=== PATIENT | male | born 1995 | race American Indian/Alaskan Native ===

== ENCOUNTER 2019-05-20 06:32 | Emergency (ER) | payer SELFPAY ==
[2019-05-20] MEDS ORDERED: IPRATROPIUM/ALBUTEROL SULFATE 3 ML AMPUL.NEB IH ONE (06:38)
[2019-05-20] MEDS ORDERED: methylPREDNISolone Sod Succinate 40 MG/1 ML INJ IM ONE (06:58)
[2019-05-20] MEDS ORDERED: ALBUTEROL 2.5 MG/3 ML NEBU IH ONE (06:59)
[2019-05-20] MEDS ORDERED: ACETAMINOPHEN 325 MG TAB PO ONE (06:59)
[2019-05-20] MEDS ORDERED: IPRATROPIUM 0.02% NEBU 2.5 ML IH ONE (06:59)
--- NOTE | 2019-05-20 07:13 | Emergency Department Report ---
Minor Respiratory - HPI Chief Complaint: Dyspnea/Respdistress Stated Complaint: ASTHMA Time Seen by Provider: 05/20/19 07:13 Pain Location: Chest Severity: moderate Minor Respiratory: Yes Able to Tolerate Fluids, Yes Cough, Yes Shortness of Breath, No Rhinorrhea, No Sore Throat, No Ear Pain, No Sick Contacts, No Hemoptysis, No Chest Pain, No Fever Other History: 24 yo AA male comes to ER with cough and wheezing. Pt has history asthma, has no pcp and has run out of his inhaler. Talking in complete sentences. Ambulatory without SOB. Denies fever, chills, or purulent sputum. ED Review of Systems ROS: Stated complaint: ASTHMA Other details as noted in HPI Comment: All other systems reviewed and negative ED Past Medical Hx - Past Medical History Previous Medical History?: Yes Hx Asthma: Yes - Surgical History Past Surgical History?: No - Family History Family history: no significant - Social History Smoking Status: Never Smoker Substance Use Type: None - Medications Home Medications: Home Medications Medication Instructions Recorded Confirmed Last Taken Type ALBUTEROL NEB's [Proventil 0.083% 2.5 mg IH TID PRN #1 box 05/20/19 Unknown Rx NEBS] Albuterol Sulfate [Proair 90 mcg IH QID PRN #1 aer.pow.ba 05/20/19 Unknown Rx Respiclick] Cetirizine HCl [ZyrTEC] 10 mg PO DAILY #30 capsule 05/20/19 Unknown Rx Fluticasone [Flonase] 1 spray NS QDAY #1 bottle 05/20/19 Unknown Rx predniSONE [Deltasone] 20 mg PO DAILY #5 tablet 05/20/19 Unknown Rx Minor Respiratory Exam - Exam General: Vital signs noted. No distress. Alert and acting appropriately. HEENT: Yes Moist Mucous Membranes, No Pharyngeal Erythema, No Pharyngeal Exudates, No Rhinorrhea, No Conjuctival Injection, No Frontal Tenderness, No Maxillary Tenderness Ear: Neither TM Bulge, Neither TM Erythema, Neither EAC Pain, Neither EAC Discharge Neck: Yes Supple, No Adenopathy Lungs: Yes Good Air Exchange, Yes Wheezes, Yes Cough, No Ronchi, No Stridor, No Labored Respirations, No Retractions, No Use of Accessory Muscles, No Other Abnormal Lung Sounds Heart: Yes Regular, No Murmur Abdomen: Yes Normal Bowel Sounds, No Tenderness, No Peritoneal Signs Skin: No Rash Neurologic: Alert and oriented, no deficits. Musculoskeletal: Unremarkable. ED Course Vital Signs 05/20/19 05/20/19 06:35 07:06 Temperature 98.6 F Pulse Rate 111 H Pulse Rate [ 106 H Bilateral] Respiratory 24 Rate Respiratory 22 Rate [Bilateral ] Blood Pressure 121/83 O2 Sat by Pulse 90 Oximetry ED Medical Decision Making - Radiology Data Radiology results: report reviewed, image reviewed - Medical Decision Making xray neg duoneb/solumedrol and Mg in ER with decreased wheezing. ambulatory without sob. taking po. talking in full sentences. Sat per provider on exam 98% on roomair. dc home with dc plan of care and pcp referral. Vital Signs 05/20/19 05/20/19 05/20/19 06:35 07:06 07:58 Temperature 98.6 F Pulse Rate 111 H Pulse Rate [ 106 H Bilateral] Respiratory 24 16 Rate Respiratory 22 Rate [Bilateral ] Blood Pressure 121/83 Blood Pressure [Left] O2 Sat by Pulse 90 Oximetry 05/20/19 08:11 Temperature 97.8 F Pulse Rate 81 Pulse Rate [ Bilateral] Respiratory 19 Rate Respiratory Rate [Bilateral ] Blood Pressure Blood Pressure 107/67 [Left] O2 Sat by Pulse 92 Oximetry - Differential Diagnosis asthma ae with or without infection; ro pna Critical care attestation.: If time is entered above; I have spent that time in minutes in the direct care of this critically ill patient, excluding procedure time. ED Disposition Clinical Impression: Asthma with acute exacerbation Disposition: DC-01 TO HOME OR SELFCARE Is pt being admited?: No Does the pt Need Aspirin: No Condition: Stable Instructions: Asthma (ED) Additional Instructions: STAY WELL HYDRATED WITH WATER MEDS ORDERED TODAY MOTRIN OR TYLENOL SHOULD YOU DEVELOP FEVER AVOID TRIGGER COOL MIST HUMIDIFIER TO YOUR SLEEPING AREA WILL HELP FOLLOW UP WITH PCP REFERRAL BELOW Prescriptions: predniSONE [Deltasone] 20 mg PO DAILY #5 tablet Fluticasone [Flonase] 1 spray NS QDAY #1 bottle Albuterol Sulfate [Proair Respiclick] 90 mcg IH QID PRN #1 aer.pow.ba PRN Reason: Wheezing ALBUTEROL NEB's [Proventil 0.083% NEBS] 2.5 mg IH TID PRN #1 box PRN Reason: Wheezing Cetirizine HCl [ZyrTEC] 10 mg PO DAILY #30 capsule Referrals: MICHELLE MASTERS MD [Staff Physician] - 3-5 Days [facility] [Outside] - 3-5 Days Time of Disposition: 07:34
[2019-05-20] MEDS ORDERED: LORATADINE (NF) 10 MG TAB PO ONE (07:25)
[2019-05-20] MEDS ORDERED: MAGNESIUM SULFATE 2 GM/50 ML BAG IV ONE (07:25)
--- NOTE | 2019-05-20 07:38 | XRay Report ---
CHEST 2 VIEWS INDICATION / CLINICAL INFORMATION: dyspnea, asthma. COMPARISON: None available. FINDINGS: SUPPORT DEVICES: None. HEART / MEDIASTINUM: No significant abnormality. LUNGS / PLEURA: The lungs are hyperexpanded with flattening of the diaphragms. No focal pulmonary con solidation identified. No pleural effusion. No pneumothorax. ADDITIONAL FINDINGS: No significant additional findings. IMPRESSION: 1. Hyperexpanded lungs suggesting air-trapping in this patient with reported history of asthma. No fo maritza consolidation identified. Signer Name: Christie Estevez MD Signed: 05/20/2019 7:33 AM Workstation Name: [id number]
[2019-05-20 08:11] VITALS: BP 107/67
== END 2019-05-20 08:39 | disposition home or self-care (01) ==
LOC: ED 06:32
DX: J45.901 Unspecified asthma with (acute) exacerbation (principal)
CPT/HCPCS: 71046; 94644; 96365; 96372; 99283; J2920; J3475

== ENCOUNTER 2019-05-24 11:36 | Emergency (ER) | payer SELFPAY ==
[2019-05-24 11:48] VITALS: BP 138/76
[2019-05-24] MEDS ORDERED: DUONEB *Not for PRN Use IH ONE (11:48)
--- NOTE | 2019-05-24 11:48 | Event Note ---
ED Screening Note Date of service: 05/24/19 Time: 11:45 ED Screening Note: This is a 24 y.o. M. that presents to the ER with dyspnea for 30 minutes. PMH of Asthma Reports SOB and chest tightness Denies fever, chills, palpitations, or cough. This initial assessment/diagnostic orders/clinical plan/treatment(s) is/are subject to change based on patients health status, clinical progression and re- assessment by fellow clinical providers in the ED. Further treatment and workup at subsequent clinical providers discretion. Patient/guardian urged not to elope from the ED as their condition may be serious if not clinically assessed and managed. Initial orders include: CXR Duoneb
--- NOTE | 2019-05-24 12:14 | XRay Report ---
CHEST 2 VIEWS INDICATION / CLINICAL INFORMATION: cough and dyspnea. COMPARISON: 05/20/19 FINDINGS: SUPPORT DEVICES: None. HEART / MEDIASTINUM: No significant abnormality. LUNGS / PLEURA: No significant pulmonary or pleural abnormality. Lungs are well expanded. No pneumoth orax. ADDITIONAL FINDINGS: No significant additional findings. IMPRESSION: 1. No acute findings. No change. Signer Name: Hang Major MD Signed: 05/24/2019 12:10 PM Workstation Name: [id number]
[2019-05-24] MEDS ORDERED: PROVENTIL IH ONE (12:30)
[2019-05-24] MEDS ORDERED: ATROVENT IH ONE (12:30)
--- NOTE | 2019-05-24 14:07 | Emergency Department Report ---
ED Asthma HPI - General Chief Complaint: Adult Asthma Stated Complaint: ASTHMA/SOB Time Seen by Provider: 05/24/19 11:45 Source: patient Mode of arrival: Ambulatory Limitations: No Limitations - History of Present Illness Initial Comments: Patient is 24-year-old -Maced[place] male with past medical history of asthma and states that the past several hours he said wheezing. Patient has no albuterol inhaler at home. It has a nonproductive cough. Patient also states that he has some chills morning as well. Patient states that cold air is 1 of his triggers for his asthma. - Related Data Previous Rx's Medication Instructions Recorded Last Taken Type ALBUTEROL NEB's [Proventil 0.083% 2.5 mg IH TID PRN #1 box 05/20/19 Unknown Rx NEBS] Albuterol Sulfate [Proair 90 mcg IH QID PRN #1 aer.pow.ba 05/20/19 Unknown Rx Respiclick] Cetirizine HCl [ZyrTEC] 10 mg PO DAILY #30 capsule 05/20/19 Unknown Rx Fluticasone [Flonase] 1 spray NS QDAY #1 bottle 05/20/19 Unknown Rx predniSONE [Deltasone] 20 mg PO DAILY #5 tablet 05/20/19 Unknown Rx ALBUTEROL Inhaler (OR & NICU) 2 puff IH QID PRN #1 inhalation 05/24/19 Unknown Rx [ProAir HFA Inhaler] predniSONE [Deltasone] 20 mg PO QDAY #5 tab 05/24/19 Unknown Rx Allergies Allergy/AdvReac Type Severity Reaction Status Date / Time No Known Allergies Allergy Verified 05/20/19 06:38 ED Review of Systems ROS: Stated complaint: ASTHMA/SOB Other details as noted in HPI Comment: All other systems reviewed and negative ED Past Medical Hx - Past Medical History Previous Medical History?: Yes Hx Asthma: Yes - Surgical History Past Surgical History?: No - Social History Smoking Status: Never Smoker Substance Use Type: None - Medications Home Medications: Home Medications Medication Instructions Recorded Confirmed Last Taken Type ALBUTEROL NEB's [Proventil 0.083% 2.5 mg IH TID PRN #1 box 05/20/19 Unknown Rx NEBS] Albuterol Sulfate [Proair 90 mcg IH QID PRN #1 aer.pow.ba 05/20/19 Unknown Rx Respiclick] Cetirizine HCl [ZyrTEC] 10 mg PO DAILY #30 capsule 05/20/19 Unknown Rx Fluticasone [Flonase] 1 spray NS QDAY #1 bottle 05/20/19 Unknown Rx predniSONE [Deltasone] 20 mg PO DAILY #5 tablet 05/20/19 Unknown Rx ALBUTEROL Inhaler (OR & NICU) 2 puff IH QID PRN #1 inhalation 05/24/19 Unknown Rx [ProAir HFA Inhaler] predniSONE [Deltasone] 20 mg PO QDAY #5 tab 05/24/19 Unknown Rx ED Physical Exam - General Limitations: No Limitations General appearance: alert, in no apparent distress - Head Head exam: Present: atraumatic, normocephalic - Eye Eye exam: Present: normal appearance - ENT ENT exam: Present: mucous membranes moist - Neck Neck exam: Present: normal inspection - Respiratory Respiratory exam: Present: normal lung sounds bilaterally. Absent: respiratory distress, wheezes, rales, rhonchi - Cardiovascular Cardiovascular Exam: Present: regular rate, normal rhythm. Absent: systolic murmur, diastolic murmur, rubs, gallop - GI/Abdominal GI/Abdominal exam: Present: soft, normal bowel sounds. Absent: tenderness, guarding, rebound - Rectal Rectal exam: Present: deferred - Extremities Exam Extremities exam: Present: normal inspection - Back Exam Back exam: Present: normal inspection - Neurological Exam Neurological exam: Present: alert, oriented X3 - Psychiatric Psychiatric exam: Present: normal affect, normal mood - Skin Skin exam: Present: warm, dry, intact, normal color. Absent: rash ED Course Vital Signs 05/24/19 11:46 Temperature 98.9 F Pulse Rate 117 H Respiratory 22 Rate Blood Pressure 138/76 O2 Sat by Pulse 95 Oximetry ED Medical Decision Making - Radiology Data Radiology results: report reviewed (x-ray within normal limits) - Medical Decision Making Patient received a neb treatment which did help his symptoms significantly. Patient is no longer wheezing at the time of discharge. Critical care attestation.: If time is entered above; I have spent that time in minutes in the direct care of this critically ill patient, excluding procedure time. ED Disposition Clinical Impression: Asthma with acute exacerbation Disposition: DC-01 TO HOME OR SELFCARE Is pt being admited?: No Does the pt Need Aspirin: No Condition: Stable Instructions: Asthma (ED) Referrals: [facility], MD [Referring] - 3-5 Days Time of Disposition: 14:07
== END 2019-05-24 14:17 | disposition home or self-care (01) ==
LOC: ED 11:36
DX: J45.901 Unspecified asthma with (acute) exacerbation (principal)
CPT/HCPCS: 71046; 94640; 94644

== ENCOUNTER 2019-06-13 15:29 | Emergency (ER) | payer SELFPAY ==
[2019-06-13 15:33] VITALS: BP 128/81
[2019-06-13] MEDS ORDERED: ALBUTEROL 2.5 MG/3 ML NEBU IH ONE (15:58)
[2019-06-13] MEDS ORDERED: methylPREDNISolone Sod Succinate 125 MG/2 ML INJ IM ONE (15:58)
[2019-06-13] MEDS ORDERED: IPRATROPIUM 0.02% NEBU 2.5 ML IH ONE (15:58)
--- NOTE | 2019-06-13 16:14 | Emergency Department Report ---
ED Asthma HPI - General Chief Complaint: Adult Asthma Stated Complaint: ASTHMA/CHEST PAIN Time Seen by Provider: 06/13/19 15:53 Source: patient Mode of arrival: Ambulatory Limitations: No Limitations - History of Present Illness Initial Comments: 24-year-old male with history of asthma who presents to ED with no shortness of breath since last night. Patient states he ran out of his inhaler. He denies cough and fever. MD Complaint: "asthma attack" -: Last night Severity: moderate Context: ran out of meds Associated Symptoms: denies: productive cough, dry cough, fever - Related Data Current Asthma Therapy: inhaled bronchodilator Previous Rx's Medication Instructions Recorded Last Taken Type ALBUTEROL NEB's [Proventil 0.083% 2.5 mg IH TID PRN #1 box 05/20/19 Unknown Rx NEBS] Albuterol Sulfate [Proair 90 mcg IH QID PRN #1 aer.pow.ba 05/20/19 Unknown Rx Respiclick] Cetirizine HCl [ZyrTEC] 10 mg PO DAILY #30 capsule 05/20/19 Unknown Rx Fluticasone [Flonase] 1 spray NS QDAY #1 bottle 05/20/19 Unknown Rx predniSONE [Deltasone] 20 mg PO DAILY #5 tablet 05/20/19 Unknown Rx ALBUTEROL Inhaler (OR & NICU) 2 puff IH QID PRN #1 inhalation 05/24/19 Unknown Rx [ProAir HFA Inhaler] predniSONE [Deltasone] 20 mg PO QDAY #5 tab 05/24/19 Unknown Rx Albuterol Sulfate [Proventil Hfa] 2 puff IH Q4HR PRN #1 hfa.aer.ad 06/13/19 U nknown Rx predniSONE [Deltasone] 50 mg PO QDAY #5 tab 06/13/19 Unknown Rx Allergies Allergy/AdvReac Type Severity Reaction Status Date / Time No Known Allergies Allergy Verified 05/20/19 06:38 ED Review of Systems ROS: Stated complaint: ASTHMA/CHEST PAIN Other details as noted in HPI Comment: All other systems reviewed and negative Constitutional: denies: chills, fever Respiratory: wheezing. denies: cough ED Past Medical Hx - Past Medical History Previous Medical History?: Yes Hx Asthma: Yes - Surgical History Past Surgical History?: No - Social History Smoking Status: Never Smoker Substance Use Type: None - Medications Home Medications: Home Medications Medication Instructions Recorded Confirmed Last Taken Type ALBUTEROL NEB's [Proventil 0.083% 2.5 mg IH TID PRN #1 box 05/20/19 Unknown Rx NEBS] Albuterol Sulfate [Proair 90 mcg IH QID PRN #1 aer.pow.ba 05/20/19 Unknown Rx Respiclick] Cetirizine HCl [ZyrTEC] 10 mg PO DAILY #30 capsule 05/20/19 Unknown Rx Fluticasone [Flonase] 1 spray NS QDAY #1 bottle 05/20/19 Unknown Rx predniSONE [Deltasone] 20 mg PO DAILY #5 tablet 05/20/19 Unknown Rx ALBUTEROL Inhaler (OR & NICU) 2 puff IH QID PRN #1 inhalation 05/24/19 Unknown Rx [ProAir HFA Inhaler] predniSONE [Deltasone] 20 mg PO QDAY #5 tab 05/24/19 Unknown Rx Albuterol Sulfate [Proventil Hfa] 2 puff IH Q4HR PRN #1 hfa.aer.ad 06/13/19 Unknown Rx predniSONE [Deltasone] 50 mg PO QDAY #5 tab 06/13/19 Unknown Rx ED Physical Exam - General Limitations: No Limitations General appearance: alert, in no apparent distress - Head Head exam: Present: atraumatic, normocephalic - Eye Eye exam: Present: normal appearance - ENT ENT exam: Present: mucous membranes moist - Neck Neck exam: Present: normal inspection - Respiratory Respiratory exam: Present: wheezes. Absent: respiratory distress - Cardiovascular Cardiovascular Exam: Present: normal rhythm, tachycardia - GI/Abdominal GI/Abdominal exam: Present: soft. Absent: distended, tenderness - Extremities Exam Extremities exam: Present: normal inspection - Neurological Exam Neurological exam: Present: alert, oriented X3 - Psychiatric Psychiatric exam: Present: normal affect, normal mood - Skin Skin exam: Present: warm, dry, intact, normal color ED Course Vital Signs 06/13/19 06/13/19 15:33 17:07 Temperature 98.4 F Pulse Rate 118 H Pulse Rate [ 87 Posterior Bilateral Throughout] Respiratory 18 Rate Respiratory 20 Rate [Posterior Bilateral Throughout] Blood Pressure 128/81 [Right] O2 Sat by Pulse 94 Oximetry - Reevaluation(s) Reevaluation #1: 06/13/19 17:26 Wheezing much improved. Pt feeling much better at this time. Feels ok for d/c home. Critical care attestation.: If time is entered above; I have spent that time in minutes in the direct care of this critically ill patient, excluding procedure time. ED Disposition Clinical Impression: Acute asthma exacerbation Disposition: DC- TO HOME OR SELFCARE Is pt being admited?: No Condition: Stable Instructions: Asthma (ED) Referrals: PRIMARY CARE [Primary Care Provider] - 3-5 Days [facility] [Provider Group] - 3-5 Days [facility] [place] [Outside] - 3-5 Days Time of Disposition: 17:27
[2019-06-13] MEDS ORDERED: IBUPROFEN 800 MG TAB PO ONE (17:27)
== END 2019-06-13 17:51 | disposition home or self-care (01) ==
LOC: ED 15:29
DX: J45.901 Unspecified asthma with (acute) exacerbation (principal)
CPT/HCPCS: 94640; J2930; 94644; 96372

== ENCOUNTER 2020-02-05 16:46 | Emergency (ER) | payer SELFPAY ==
[2020-02-05 17:04] VITALS: BP 99/72
[2020-02-05] MEDS ORDERED: MAGNESIUM SULFATE 2 GM/50 ML BAG IV ONE (17:54)
[2020-02-05] MEDS ORDERED: IPRATROPIUM 0.02% NEBU 2.5 ML IH ONE (17:54)
[2020-02-05] MEDS ORDERED: ALBUTEROL 2.5 MG/3 ML NEBU IH ONE (17:54)
[2020-02-05] MEDS ORDERED: dexAMETHasone 20 MG/5 ML VIAL IV ONE (17:55)
--- NOTE | 2020-02-05 17:56 | Event Note ---
ED Screening Note Date of service: 02/05/20 Time: 17:55 ED Screening Note: 24-year-old -Omani male presents to the emergency room for shortness of breath and asthma flare since his morning. Patient is ran out of his medications. Patient denies any history of intubation. This initial assessment/diagnostic orders/clinical plan/treatment(s) is/are subject to change based on patients health status, clinical progression and re- assessment by fellow clinical providers in the ED. Further treatment and workup at subsequent clinical providers discretion. Patient/guardian urged not to elope from the ED as their condition may be serious if not clinically assessed and managed. Initial orders include:
--- NOTE | 2020-02-05 19:07 | Emergency Department Report ---
ED Shortness of Breath HPI - General Chief Complaint: Adult Asthma Stated Complaint: CHEST PAIN, ASTHMA Time Seen by Provider: 02/05/20 18:55 Source: patient (;[id number]) Mode of arrival: Ambulatory Limitations: No Limitations - History of Present Illness Initial Comments: Patient is a 24-year-old male that presents emergency room with complaints of chest pain and shortness of breath. Patient states that his chest pain started about 2 hours ago. Patient states that he ran out of his asthma inhaler 2 days ago. 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 Patient states that he already received a albuterol nebulizer here and is feeling much better. Patient states his symptoms have resolved. Patient states his chest pain was a 3 out of 10. Patient that his chest pain was worse with deep breath and cough and palpation. Patient states that his shortness of breath was better with rest and worse with exertion. Patient denies fever and chills. Patient denies abdominal pain. Patient denies nausea vomiting. Patient denies anxiety. Patient denies diaphoresis. Patient denies recent travel. Patient denies recent international travel. Patient denies exposure to the novel coronavirus. Patient denies sick contacts. Patient denies fever and chills. Patient denies cough. Patient denies diarrhea. Patient denies coming in contact with anybody with symptoms of the novel coronavirus. Complaint: shortness of breath -: Sudden Severity: severe Quality: aching Consistency: now resolved Improves With: rest, bronchodilators Worsens With: exertion Known History Of: asthma Context: medication noncompliance Associated Symptoms: pain with inspiration Treatments Prior to Arrival: none - Related Data Home Oxygen Therapy: No Previous Rx's Medication Instructions Recorded Last Taken Type Cetirizine HCl [ZyrTEC] 10 mg PO DAILY #30 capsule 05/20/19 Unknown Rx Fluticasone [Flonase] 1 spray NS QDAY #1 bottle 05/20/19 Unknown Rx predniSONE [Deltasone] 20 mg PO DAILY #5 tablet 05/20/19 Unknown Rx Albuterol INH(or & Nicu Only) 2 puff IH QID PRN #1 inhalation 05/24/19 Unknown Rx [ProAir HFA Inhaler] predniSONE [Deltasone] 20 mg PO QDAY #5 tab 05/24/19 Unknown Rx Albuterol Sulfate [Proventil Hfa] 2 puff IH Q4HR PRN #1 hfa.aer.ad 06/13/19 Unknown Rx predniSONE [Deltasone] 50 mg PO QDAY #5 tab 06/13/19 Unknown Rx ALBUTEROL NEB's [Proventil 0.083% 2.5 mg IH TID PRN #1 box 02/05/20 Unknown Rx NEBS] Albuterol Sulfate [Proair 90 mcg IH QID PRN #1 aer.pow.ba 02/05/20 Unknown Rx Respiclick] Dexamethasone [Taperdex] 1.5 mg PO DAILY 7 Days #1 tab.ds.pk 02/05/20 Unknown Rx Allergies Allergy/AdvReac Type Severity Reaction Status Date / Time No Known Allergies Allergy Verified 05/20/19 06:38 ED Review of Systems ROS: Stated complaint: CHEST PAIN, ASTHMA Other details as noted in HPI Constitutional: denies: chills, fever Eyes: denies: eye pain, eye discharge, vision change ENT: denies: ear pain, throat pain Respiratory: shortness of breath, wheezing. denies: cough Cardiovascular: chest pain. denies: palpitations Endocrine: no symptoms reported Gastrointestinal: denies: abdominal pain, nausea, diarrhea Genitourinary: denies: urgency, dysuria Musculoskeletal: denies: back pain, joint swelling, arthralgia Skin: denies: rash, lesions Neurological: denies: headache, weakness, paresthesias Psychiatric: denies: anxiety, depression Hematological/Lymphatic: denies: easy bleeding, easy bruising ED Past Medical Hx - Past Medical History Previous Medical History?: Yes Hx Asthma: Yes - Surgical History Past Surgical History?: No - Family History Family history: no significant - Social History Smoking Status: Never Smoker Substance Use Type: None - Medications Home Medications: Home Medications Medication Instructions Recorded Confirmed Last Taken Type Cetirizine HCl [ZyrTEC] 10 mg PO DAILY #30 capsule 05/20/19 Unknown Rx Fluticasone [Flonase] 1 spray NS QDAY #1 bottle 05/20/19 Unknown Rx predniSONE [Deltasone] 20 mg PO DAILY #5 tablet 05/20/19 Unknown Rx Albuterol INH(or & Nicu Only) 2 puff IH QID PRN #1 inhalation 05/24/19 Unknown Rx [ProAir HFA Inhaler] predniSONE [Deltasone] 20 mg PO QDAY #5 tab 05/24/19 Unknown Rx Albuterol Sulfate [Proventil Hfa] 2 puff IH Q4HR PRN #1 hfa.aer.ad 06/13/19 Unknown Rx predniSONE [Deltasone] 50 mg PO QDAY #5 tab 06/13/19 Unknown Rx ALBUTEROL NEB's [Proventil 0.083% 2.5 mg IH TID PRN #1 box 02/05/20 Unknown Rx NEBS] Albuterol Sulfate [Proair 90 mcg IH QID PRN #1 aer.pow.ba 02/05/20 Unknown Rx Respiclick] Dexamethasone [Taperdex] 1.5 mg PO DAILY 7 Days #1 tab.ds.pk 02/05/20 Unknown Rx ED Physical Exam - General Limitations: No Limitations General appearance: alert, in no apparent distress - Head Head exam: Present: atraumatic, normocephalic - Eye Eye exam: Present: normal appearance - ENT ENT exam: Present: mucous membranes moist - Neck Neck exam: Present: normal inspection - Respiratory Respiratory exam: Present: normal lung sounds bilaterally. Absent: respiratory distress, wheezes, rales, rhonchi - Cardiovascular Cardiovascular Exam: Present: regular rate, normal rhythm. Absent: systolic murmur, diastolic murmur, rubs, gallop - GI/Abdominal GI/Abdominal exam: Present: soft, normal bowel sounds - Rectal Rectal exam: Present: deferred - Extremities Exam Extremities exam: Present: normal inspection - Back Exam Back exam: Present: normal inspection - Neurological Exam Neurological exam: Present: alert, oriented X3 - Psychiatric Psychiatric exam: Present: normal affect, normal mood - Skin Skin exam: Present: warm, dry, intact, normal color. Absent: rash ED Course Vital Signs 02/05/20 02/05/20 17:02 18:16 Temperature 98.1 F Pulse Rate 100 H Pulse Rate [ 92 H Bilateral] Respiratory 16 Rate Respiratory 16 Rate [Bilateral ] Blood Pressure 99/72 [Left] O2 Sat by Pulse 94 Oximetry - Reevaluation(s) Reevaluation #1: Patient has improved. Patient received 1 albuterol treatment and does not require another. Patient will given a refill of his inhaler and nebulizer and prednisone. I discussed all clinical findings with patient. I discussed plan of care with patient. Patient agrees with plan of care. Patient is stable for discharge. Patient will be discharged home. Patient given discharge instructions. Patient voiced understanding of discharge instructions. 02/05/20 19:05 ED Medical Decision Making - Medical Decision Making Patient is a 24-year-old male that presents emergency room with complaints of chest pain, shortness of breath and asthma exacerbation. Patient ran out of his asthma medications. Patient given a DuoNeb in the ER and responded well. Patient will be discharged home with a refill of his inhaler and nebulizer and a steroid taper. Patient patient does not require further medications in the ER. Patient does not require further emergency medical services. Patient is stable for discharge. - Differential Diagnosis Shortness of breath, asthma, wheezing Critical care attestation.: If time is entered above; I have spent that time in minutes in the direct care of this critically ill patient, excluding procedure time. ED Disposition Clinical Impression: Shortness of breath Chest pain Qualifiers: Chest pain type: unspecified Qualified Code(s): R07.9 - Chest pain, unspecified Asthma Qualifiers: Asthma severity: moderate Asthma persistence: unspecified Asthma complication type: with acute exacerbation Qualified Code(s): J45.901 - Unspecified asthma with (acute) exacerbation Disposition: DC-01 TO HOME OR SELFCARE Is pt being admited?: No Does the pt Need Aspirin: No Condition: Stable Instructions: Chest Pain (ED), Asthma (ED), Reactive Airways Disease (ED) Additional Instructions: Patient to follow-up with primary care in 2 to 3 days. Patient to follow-up with bilingual medical assistant in 2 to 3 days. Patient to rest. Patient to increase water. Patient to avoid strenuous exercise or heavy lifting until cleared by bilingual medical assistant or primary care. Patient to take Tylenol or ibuprofen as needed for pain. Patient to take meds as directed. Patient to return to the ER if condition worsens, changes or new symptoms arise. Prescriptions: Albuterol Sulfate [Proair Respiclick] 90 mcg IH QID PRN #1 aer.pow.ba PRN Reason: Wheezing ALBUTEROL NEB's [Proventil 0.083% NEBS] 2.5 mg IH TID PRN #1 box PRN Reason: Wheezing Dexamethasone [Taperdex] 1.5 mg PO DAILY 7 Days #1 tab.ds.pk Referrals: PRIMARY CARE, [Primary Care Provider] - 2-3 Days Time of Disposition: 19:09
== END 2020-02-05 19:42 | disposition home or self-care (01) ==
LOC: ED 16:46
DX: J45.901 Unspecified asthma with (acute) exacerbation (principal); Z79.899 Other long term (current) drug therapy
CPT/HCPCS: 94644; 96365; 96375; 99283; J1100; J3475; 94640